=== PATIENT | female | born 1940 | race Caucasian/White ===

== ENCOUNTER 2016-10-24 15:45 | Emergency (ER) | payer MEDICARE, MEDICAID ==
[2016-10-24 15:53] VITALS: BP 166/91
--- NOTE | 2016-10-24 16:45 | ER Document Report ---
ED General - General Chief Complaint: Fall Stated Complaint: RIB PAIN/FALL Time Seen by Provider: 10/24/16 16:38 TRAVEL OUTSIDE OF THE [place] IN LAST 30 DAYS: No - HPI Patient complains to provider of: left rib pain Onset: This morning Notes: Female presents after falling onto her left side. She was helping a friend get up she tripped and landed on her left rib cage. Patient is reproducible pain midclavicular line point tenderness seventh left rib 's breath or cough. Patient is able to laugh, cough without exacerbation of pain. Pain is 6/10 sharp in nature without radiation. Denies nausea vomiting or diaphoresis - Related Data Allergies/Adverse Reactions: No Known Allergies Allergy (Unverified 10/24/16 15:51) Past Medical History - Social History Smoking Status: Current Every Day Smoker Chew tobacco use (# tins/day): No Frequency of alcohol use: None Drug Abuse: None Family History: None - Past Medical History Cardiac Medical History: Reports: Hx Hypertension Endocrine Medical History: Reports: Hx Diabetes Mellitus Type 2 Renal/ Medical History: Denies: Hx Peritoneal Dialysis Review of Systems - Review of Systems Constitutional: No symptoms reported EENT: No symptoms reported Cardiovascular: Chest pain Respiratory: No symptoms reported Gastrointestinal: No symptoms reported Genitourinary: No symptoms reported Female Genitourinary: No symptoms reported Musculoskeletal: No symptoms reported Skin: No symptoms reported Hematologic/Lymphatic: No symptoms reported Neurological/Psychological: No symptoms reported Physical Exam - Vital signs Vitals: Temp Pulse Resp BP Pulse Ox 98.4 F 102 H 18 166/91 H 97 10/24/16 15:52 10/24/16 15:52 10/24/16 15:52 10/24/16 15:52 10/24/16 15:52 Interpretation: Normal - General General appearance: Appears well, Alert - HEENT Head: Normocephalic, Atraumatic Eyes: Normal Pupils: PERRL - Respiratory Respiratory status: No respiratory distress Chest status: Nontender Breath sounds: Normal Chest palpation: Normal - Cardiovascular Rhythm: Regular Heart sounds: Normal auscultation Murmur: No Notes: Reducible left sharp chest - Abdominal Inspection: Normal Distension: No distension Bowel sounds: Normal Tenderness: Nontender Organomegaly: No organomegaly - Back Back: Normal, Nontender - Extremities General upper extremity: Normal inspection, Nontender, Normal color, Normal ROM , Normal temperature General lower extremity: Normal inspection, Nontender, Normal color, Normal ROM , Normal temperature, Normal weight bearing. No: Mejia's sign - Neurological Neuro grossly intact: Yes Cognition: Normal Orientation: AAOx4 Michael Coma Scale Eye Opening: Spontaneous [place] Coma Scale Verbal: Oriented [place] Coma Scale Motor: Obeys Commands Michael Coma Scale Total: 15 Speech: Normal Motor strength normal: LUE, RUE, LLE, RLE Sensory: Normal - Psychological Associated symptoms: Normal affect, Normal mood - Skin Skin Temperature: Warm Skin Moisture: Dry Skin Color: Normal Course - Re-evaluation Re-evalutation: 10/24/16 16:43 Presents after minor left-sided chest trauma. Patient is one micturition of a broken rib. Patient able to cough forcefully and left without pain. Pain is only exacerbated with twisting or palpation. Imaging studies were negative per my read 10/24/16 16:53 - Vital Signs Vital signs: Temp Pulse Resp BP Pulse Ox 98.4 F 102 H 18 166/91 H 97 10/24/16 15:52 10/24/16 15:52 10/24/16 15:52 10/24/16 15:52 10/24/16 15:52 - Diagnostic Test Radiology results interpreted by me: 10/24/16 16:52 X-ray negative for acute process Discharge - Discharge Clinical Impression: Bone bruise Condition: Good Disposition: HOME, SELF-CARE Instructions: Rib Contusion ([facility]) Additional Instructions: [id number] analgesia with Tylenol and ibuprofen. Follow-up with your family doctor next week Return to the Emergency Department without delay if any worse.
--- NOTE | 2016-10-24 16:51 | RADIOLOGY REPORT (SQ) ---
EXAM DESCRIPTION: RIBS LEFT W/PA CHEST COMPLETED DATE/TIME: 10/24/2016 4:38 pm REASON FOR STUDY: fall injury COMPARISON: None. TECHNIQUE: Frontal view of the chest and additional views of the left ribs acquired. NUMBER OF VIEWS: Three view. LIMITATIONS: None. FINDINGS: FRONTAL CXR: No pneumothorax. No pleural effusion. No atelectasis or infiltrates. RIBS: No displaced rib fractures. Incidental note is made of well-healed fracture deformities of the left 6th, 7th, and 8th ribs laterally. No lytic or blastic bony lesions. OTHER: Mediastinal and left hilar surgical changes are demonstrated. IMPRESSION: NO PNEUMOTHORAX. NO DISPLACED RIB FRACTURES. COMMENT: SITE OF TRAUMA/COMPLAINT MARKED/STAMP COMPLETED: NO. TECHNICAL DOCUMENTATION: JOB ID: [id number] [employer]- All Rights Reserved
== END 2016-10-24 16:57 | disposition home or self-care (01) ==
LOC: ER 15:45
DX: S20.212A Contusion of left front wall of thorax, initial encounter (principal); R07.81 Pleurodynia; W19.XXXA Unspecified fall, initial encounter; F17.200 Nicotine dependence, unspecified, uncomplicated
CPT/HCPCS: 99283

== ENCOUNTER 2016-12-14 14:35 | Emergency (ER) | payer MEDICARE, MEDICAID ==
[2016-12-14 14:45] VITALS: BP 156/87
[2016-12-14] MEDS ORDERED: KETOROLAC TROMETHAMINE INJ/PF 30 MG/1 ML SDV IM ONE (15:15)
--- NOTE | 2016-12-14 15:20 | ER Document Report ---
HPI - HPI Pain Level: 5 Notes: Patient is a 76-year-old female with a history of hypertension and diabetes who presents to the ED complaining of left hip pain 1 month without any injury or trauma. Patient states that the pain does not radiate and is primarily to the left lateral hip/buttock. She has tried stretching without any relief. She has not taken any other usxi-ukx-jzmuupx meds for her symptoms. The pain is described as a soreness/ache and hurts primarily when she is ambulating or laying on it for too long. Patient states that she is still able to ambulate without any other difficulties. She has not noticed any swelling, redness, or bruising. She denies any drug allergies or other significant past medical history. Denies any surgical procedures to the left hip. Patient denies any surgeries or procedures to her low back. Denies any IV drug use. Denies any headache, fever, neck pain, chest pain, palpitations, syncope, cough, shortness of breath, wheeze, dyspnea, abdominal pain, nausea/vomiting/diarrhea, urinary retention, dysuria, hematuria, back pain, loss of control of bowel or bladder, numbness/tingling, saddle anesthesia, muscle paralysis/weakness, or rash. - ROS Notes: REVIEW OF SYSTEMS: CONSTITUTIONAL : Denies fever, chills, or sweats. Denies recent illness. EENT: Denies eye, ear, throat, or mouth pain or symptoms. Denies nasal or sinus congestion or discharge. Denies throat, tongue, or mouth swelling or difficulty swallowing. CARDIOVASCULAR: Denies chest pain. Denies palpitations or racing or irregular heart beat. Denies ankle edema. RESPIRATORY: Denies cough, cold, or chest congestion. Denies shortness of breath, difficulty breathing, or wheezing. GASTROINTESTINAL: Denies abdominal pain or distention. Denies nausea, vomiting , or diarrhea. Denies blood in vomitus, stools, or per rectum. Denies black, tarry stools. Denies constipation. GENITOURINARY: Denies difficulty urinating, painful urination, burning, frequency, blood in urine, or discharge. MUSCULOSKELETAL: see hpi SKIN: Denies rash, lesions or sores. NEUROLOGICAL: Denies confusion or altered mental status. Denies passing out or loss of consciousness. Denies dizziness or lightheadedness. Denies headache. Denies weakness or paralysis or loss of use of either side. Denies problems with gait or speech. Denies sensory loss, numbness, or tingling. ALL OTHER SYSTEMS REVIEWED AND NEGATIVE. Dictation was performed using [employer] voice recognition software - DERM Skin Color: Normal Past Medical History - Social History Smoking Status: Unknown if Ever Smoked Family History: None Patient has suicidal ideation: No - Past Medical History Cardiac Medical History: Reports: Hx Hypertension Endocrine Medical History: Reports: Hx Diabetes Mellitus Type 2 Renal/ Medical History: Denies: Hx Peritoneal Dialysis Vertical Provider Document - CONSTITUTIONAL Agree With Documented VS: Yes Notes: PHYSICAL EXAMINATION: GENERAL: Well-appearing, well-nourished and in no acute distress. LUNGS: Breath sounds clear to auscultation bilaterally and equal. No wheezes rales or rhonchi. HEART: Regular rate and rhythm without murmurs, rubs, gallops. ABDOMEN: Soft, nontender, nondistended abdomen. No guarding, no rebound. No masses appreciated. Normal bowel sounds present. No CVA tenderness bilaterally. no pulsatile mass. Musculoskeletal: LE's b/l: FROM to passive/active. Strength 5+/5. FAB neg. + tenderness just posterior to the troch bursa in the soft tissue. No bony tenderness of the hip. No issues through ROM. N/V intact distal. No erythema , ecchymosis, step-offs, of signs of trauma/deformity. Back: FROM, strength 5+/5. No vertebral point tenderness. No muscle spasming. No SI jt tenderness. Extremities: No cyanosis, clubbing, or edema b/l. Peripheral pulses 2+. Capillary refill less than 3 seconds. NEUROLOGICAL: Normal speech, ataxic gait. Normal sensory, motor exams PSYCH: Normal mood, normal affect. SKIN: Warm, Dry, normal turgor, no rashes or lesions noted. - INFECTION CONTROL TRAVEL OUTSIDE OF THE [place] IN LAST 30 DAYS: No - RESPIRATORY O2 Sat by Pulse Oximetry: 99 Course - Re-evaluation Re-evalutation: 12/14/16 15:40 Patient is an afebrile, well-hydrated, 76-year-old female who presents the ED with left hip pain, appears to be chronic in nature and not acute. Vitals are stable. PE otherwise unremarkable for any focal neurological deficits. No imaging warranted today based on H&P. Low suspicion/risk for any other sepsis, meningitis, septic joint, fracture, dislocation, disc herniation causing severe spinal stenosis, deep space infection/abscess. Patient is aware that her condition can change from initial presentation and she needs to monitor symptoms closely and seek medical attention if any acute changes. Toradol 15 mg given IM today. I will send her home with a prescription for naproxen and Voltaren gel. Conservative measures for symptoms. Recheck with your PCM this week. Consider consult with orthopedics/physical therapy. Return to the ED with any worsening/concerning symptoms otherwise as reviewed discharge. Patient is in agreement. C[employer] was consulted to help patient with directions to nearby facilities (PCM/Ortho). - Vital Signs Vital signs: Temp Pulse Resp BP Pulse Ox 97.6 F 103 H 20 156/87 H 99 12/14/16 14:43 12/14/16 14:43 12/14/16 14:43 12/14/16 14:43 12/14/16 14:43 Discharge - Discharge Clinical Impression: Left hip pain Condition: Stable Disposition: HOME, SELF-CARE Instructions: Bursitis ([facility]), Leg Pain Nonspecific ([facility]) Additional Instructions: Rest, Ice, Compression, Elevation Tylenol/ibuprofen as needed Light stretches daily Strength exercises as able Moist heat and massage may help F/u with your PCP in 2-3 days for a recheck Consider consult(s) with Orthopedics/physical therapy for ongoing/worsening symptoms Return to the ED with any worsening symptoms and/or development of fever, headache, chest pain, palpitations, syncope, shortness of breath, trouble breathing, abdominal pain, n/v/d, blood in stool/urine, loss of control of bowel /bladder, urinary retention, muscle weakness/paralysis, saddle anesthesia, numbness/tingling, redness, abscess, discharge, swelling, or other worsening symptoms that are concerning to you. Prescriptions: Diclofenac Sodium [Voltaren] 4 gm TP QID PRN #100 gel..gm. PRN Reason: Naproxen 500 mg PO BID PRN #30 tablet PRN Reason: Forms: Elevated Blood Pressure Referrals: [facility] [Provider Group] - Follow up as needed [facility] [Provider Group] - Follow up as needed [facility] [Provider Group] - Follow up in 1 week
== END 2016-12-14 15:53 | disposition home or self-care (01) ==
LOC: ER 14:35
DX: M25.552 Pain in left hip (principal); I10 Essential (primary) hypertension; E11.9 Type 2 diabetes mellitus without complications
CPT/HCPCS: 99283; 96372; J1885

== ENCOUNTER 2017-01-11 16:55 | Emergency (ER) | payer MEDICARE, MEDICAID ==
[2017-01-11 17:03] VITALS: BP 138/103
--- NOTE | 2017-01-11 18:38 | EKG REPORT ---
SEVERITY:- OTHERWISE NORMAL ECG - SINUS RHYTHM BORDERLINE LEFT AXIS DEVIATION : Confirmed by: Jose Cheek 11-Jan-2017 18:37:02
== END 2017-01-11 18:40 | disposition left against medical advice (07) ==
LOC: ER 16:55
DX: Z53.21 Procedure and treatment not carried out due to patient leaving prior to being seen by health care provider (principal)
CPT/HCPCS: 93005; 93010

== ENCOUNTER 2017-01-21 12:40 | Emergency (ER) | payer MEDICARE, MEDICAID ==
--- NOTE | 2017-01-21 12:52 | ER Document Report ---
ED Extremity Problem, Lower - General Chief Complaint: Leg Pain Stated Complaint: LEFT LEG PAIN Time Seen by Provider: 01/21/17 12:52 Mode of Arrival: Ambulatory Information source: Patient Notes: Patient is a 76-year-old female who presents to the ER today for left knee pain. Patient States that she has osteoarthritis and already has an appointment in January to follow-up with an orthopedic surgeon and knows "I need a knee replacement." Patient states that it has been hurting her for years and that she "cannot take it anymore." She states that she just cannot wait until that appointment In January. She denies any injury, numbness or tingling. She also complains of some left hip pain radiating down into her left lower leg that started 3 days ago as well. Denies injury. TRAVEL OUTSIDE OF THE [place] IN LAST 30 DAYS: No - Related Data Allergies/Adverse Reactions: No Known Allergies Allergy (Verified 01/21/17 13:02) Past Medical History - General Information source: Patient - Social History Smoking Status: Unknown if Ever Smoked Family History: None - Past Medical History Cardiac Medical History: Reports: Hx Hypertension Endocrine Medical History: Reports: Hx Diabetes Mellitus Type 2 Renal/ Medical History: Denies: Hx Peritoneal Dialysis - Immunizations Hx Diphtheria, Pertussis, Tetanus Vaccination: Yes Review of Systems - Review of Systems Constitutional: No symptoms reported EENT: No symptoms reported Cardiovascular: No symptoms reported Respiratory: No symptoms reported Gastrointestinal: No symptoms reported Genitourinary: No symptoms reported Female Genitourinary: No symptoms reported Musculoskeletal: See HPI Skin: No symptoms reported Hematologic/Lymphatic: No symptoms reported Neurological/Psychological: No symptoms reported Physical Exam - Vital signs Vitals: Pulse Resp BP Pulse Ox 105 H 20 145/87 H 97 01/21/17 12:46 01/21/17 12:46 01/21/17 12:46 01/21/17 12:46 - Notes Notes: PHYSICAL EXAMINATION: GENERAL: Elderly, in no acute distress. HEAD: Atraumatic, normocephalic. EYES: Pupils equal round and reactive to light, extraocular movements intact, sclera anicteric, conjunctiva are normal. NECK: Normal range of motion, supple without lymphadenopathy LUNGS: CTAB and equal. No wheezes rales or rhonchi. HEART: Regular rate and rhythm without murmurs EXTREMITIES: Masses noted to the anterior and lateral left knee, both approximately 4 cm x 2 cm in diameter, fleshy feeling, no erythema or discoloration, tender to the lateral left hip and over the left SI joint, normal range of motion but with pain on flexion of the knee and hip, no pitting edema. No cyanosis. NEUROLOGICAL: Cranial nerves grossly intact. Normal sensory/motor exams. PSYCH: Normal mood, normal affect. SKIN: Warm, Dry, normal turgor, see extremities above Course - Re-evaluation Re-evalutation: 01/21/17 16:27 CT of the hip and knee reports that the lateral mass on the left knee appears to be a calcified hematoma, myositis ossificans. The anterior mass to the left knee appears to be calcified as well. I did call [facility] telephone operator receptionist for orthopedics, who states that they know about these masses, already have scheduled a knee replacement for her and an exploratory surgery for these masses. Patient's vitals are normal today. She feels better after some pain medication here in the emergency department. - Vital Signs Vital signs: Temp Pulse Resp BP Pulse Ox 98.3 F 90 20 105/84 100 01/21/17 15:05 01/21/17 15:05 01/21/17 15:05 01/21/17 15:05 01/21/17 15:05 Discharge - Discharge Clinical Impression: Myositis ossificans Osteoarthritis Qualifiers: Osteoarthritis location: knee Osteoarthritis type: unspecified Laterality: left Qualified Code(s): M17.12 - Unilateral primary osteoarthritis, left knee Condition: Stable Disposition: HOME, SELF-CARE Additional Instructions: Return immediately for any new or worsening symptoms. Follow up with primary care provider, call tomorrow to make followup appointment. Prescriptions: Meloxicam [Mobic] 15 mg PO DAILY #30 tablet Referrals: MAXI DIAZ MD [ACTIVE STAFF] - Follow up as needed
[2017-01-21] MEDS ORDERED: OXYCODONE HCL IR 5 MG TABLET PO ONE (13:03)
--- NOTE | 2017-01-21 14:04 | RADIOLOGY REPORT (SQ) ---
EXAM DESCRIPTION: CT LT LOWER EXTREMITY WITHOUT COMPLETED DATE/TIME: 01/21/2017 1:21 pm REASON FOR STUDY: masses, pain COMPARISON: None. TECHNIQUE: Axial imaging performed through the left hip with reformatted coronal and sagittal imagin g windowed for bone and soft tissues. Images saved to PACS. 3D IMAGING: Were 3D images as MIP, SSD, or volume rendering performed at the work station? Yes. All CT scanners at this facility use dose modulation, iterative reconstruction, and/or weight based d osing when appropriate to reduce radiation dose to as low as reasonably achievable (ALARA). [facility]: Dose Right [facility]: CareDose [facility]: Dose Right [facility]: Teradose 4D [facility]: Smart Technologies LIMITATIONS: None. RADIATION DOSE: Up-to-date CT equipment and radiation dose reduction techniques were employed. CTDIv ol: 3.6 mGy. DLP: 117 mGy-cm. mGy. FINDINGS: SOFT TISSUES: No obvious swelling or foreign body. BONES: No acute fracture. No dislocation. MINERALIZATION: Normal. OTHER: No other significant finding. IMPRESSION: No acute findings. TECHNICAL DOCUMENTATION: JOB ID: [id number] Quality ID # [id number]: Final reports with documentation of one or more dose reduction techniques (e.g., Au tomated exposure control, adjustment of the mA and/or kV according to patient size, use of iterative reconstruction technique) 2010 [employer]- All Rights Reserved
--- NOTE | 2017-01-21 14:11 | RADIOLOGY REPORT (SQ) ---
EXAM DESCRIPTION: CT LT LOWER EXTREMITY WITHOUT COMPLETED DATE/TIME: 01/21/2017 1:34 pm REASON FOR STUDY: left KNEE masses, pain COMPARISON: None. TECHNIQUE: Axial imaging performed through the left knee with reformatted coronal and sagittal imagi ng windowed for bone and soft tissues. Images saved to PACS. 3D IMAGING: Were 3D images as MIP, SSD, or volume rendering performed at the work station? Yes. All CT scanners at this facility use dose modulation, iterative reconstruction, and/or weight based d osing when appropriate to reduce radiation dose to as low as reasonably achievable (ALARA). [facility]: Dose Right [facility]: CareDose [facility]: Dose Right [facility]: Teradose 4D [facility]: [employer] LIMITATIONS: None. RADIATION DOSE: Up-to-date CT equipment and radiation dose reduction techniques were employed. CTDIv ol: 4.6 mGy. DLP: 120 mGy-cm. mGy. FINDINGS: SOFT TISSUES: Along the lateral aspect distal femur, approximately 6 x 2 cm AP by transver se diameter well-circumscribed subcutaneous lesion with rim calcifications and dependent calcified ma trix. Noncalcified portion measures about 58 HU. Smaller but similar appearing partially calcified lesions prepatellar soft tissues and suprapatellar fat pad. Appearance is most consistent with myosi tis ossificans, however more definitive diagnosis would require tissue sampling. BONES: Old patellar fracture status post cerclage wire fixation. Osteoarthritis, more advanced wolfe lofemoral compartment. No fracture. MINERALIZATION: Osteopenia. OTHER: No other significant finding. IMPRESSION: Myositis ossificans. Osteoarthritis. TECHNICAL DOCUMENTATION: JOB ID: [id number] Quality ID # [id number]: Final reports with documentation of one or more dose reduction techniques (e.g., Au tomated exposure control, adjustment of the mA and/or kV according to patient size, use of iterative reconstruction technique) 2010 [employer]- All Rights Reserved
[2017-01-21 15:07] VITALS: BP 105/84
== END 2017-01-21 15:07 | disposition home or self-care (01) ==
LOC: ER 12:40
DX: M61.9 Calcification and ossification of muscle, unspecified (principal); M17.12 Unilateral primary osteoarthritis, left knee; M79.605 Pain in left leg; M25.562 Pain in left knee; I10 Essential (primary) hypertension; E11.9 Type 2 diabetes mellitus without complications
CPT/HCPCS: 99283; 73700; A9270

== ENCOUNTER → 2017-01-22 | Outpatient (CLI) | payer MEDICARE, MEDICAID ==
--- NOTE | 2017-01-22 14:10 | RADIOLOGY REPORT (SQ) ---
EXAM DESCRIPTION: CHEST PA/LATERAL COMPLETED DATE/TIME: 01/22/2017 2:00 pm REASON FOR STUDY: PRE OP COMPARISON: 10/24/2016. EXAM PARAMETERS: NUMBER OF VIEWS: two views TECHNIQUE: Digital Frontal and Lateral radiographic views of the chest acquired. RADIATION DOSE: NA LIMITATIONS: none FINDINGS: LUNGS AND PLEURA: No opacities, masses or pneumothorax. No pleural effusion. MEDIASTINUM AND HILAR STRUCTURES: No masses or contour abnormalities. HEART AND VASCULAR STRUCTURES: Heart normal size. No evidence for failure. BONES: No acute findings. HARDWARE: None in the chest. OTHER: No other significant finding. IMPRESSION: NO SIGNIFICANT RADIOGRAPHIC FINDING IN THE CHEST. TECHNICAL DOCUMENTATION: JOB ID: [id number] [employer]- All Rights Reserved
[2017-01-22 14:42] LABS: ABSOLUTE EOSINOPHILS # (AUTO) 0.1 10^3/uL (0.0-0.6); ABSOLUTE LYMPHOCYTES (AUTO) 2.2 10^3/uL (0.5-4.7); ABSOLUTE MONOCYTES (AUTO) 0.4 10^3/uL (0.1-1.4); ABSOLUTE NEUT (AUTO) 4.1 10^3/uL (1.7-8.2); BASOPHILS % (AUTO) 0.6 % (0-2); EOSINOPHILS % (AUTO) 2.1 % (0-6); HEMATOCRIT 37.5 % (36.0-47.0); HEMOGLOBIN 13.2 g/dL (12.0-15.5); HGB HCT DIFFERENCE 2.1; LYMPHOCYTES % (AUTO) 31.5 % (13-45); MEAN CORPUSCULAR HEMOGLOBIN 33.4 pg (27.0-33.4); MEAN CORPUSCULAR HGB CONC 35.3 g/dL (32.0-36.0); MEAN CORPUSCULAR VOLUME 95 fl (80-97); MONOCYTES % (AUTO) 6.2 % (3-13); RED BLOOD COUNT 3.96 10^6/uL (3.72-5.28); SEGMENTED NEUTROPHILS % (AUTO) 59.6 % (42-78); WHITE BLOOD COUNT 6.9 10^3/uL (4.0-10.5)
[2017-01-22 14:55] LABS: ANION GAP 14 (5-19); BLOOD UREA NITROGEN 34 mg/dL (7-20); CALCIUM 9.1 mg/dL (8.4-10.2); CARBON DIOXIDE 22 mmol/L (22-30); CHLORIDE 105 mmol/L (98-107); CREATININE RESULT 1.41 mg/dL (0.52-1.25); GLUCOSE 184 mg/dL (75-110); POTASSIUM 4.8 mmol/L (3.6-5.0); SODIUM 140.9 mmol/L (137-145)
--- NOTE | 2017-01-23 13:45 | EKG REPORT ---
SEVERITY:- BORDERLINE ECG - SINUS RHYTHM LOW VOLTAGE IN FRONTAL LEADS BORDERLINE INFERIOR Q WAVES : Confirmed by: Jose Cheek 23-Jan-2017 13:43:54
== END ==
LOC: OD 13:12
PROVIDERS: ATTEND Orthopaedic Surgery
DX: Z01.818 Encounter for other preprocedural examination (principal); M17.12 Unilateral primary osteoarthritis, left knee
CPT/HCPCS: 36415; 71020; 80048; 83036; 85025; 93005; 93010

== ENCOUNTER 2017-02-15 05:34 | Inpatient (IN) | payer MEDICARE, MEDICAID ==
[~2017-02-15 05:34] MED LIST: BUPIVACAINE INJ/PF LIPOSOME/PF 266 MG/20 ML SDV INJ PRN; IBUPROFEN 800 MG in NORMAL SALINE 250 ML IV PRN; LANSOPRAZOLE 15 MG TAB.RAP.DR PO PRN; NORMAL SALINE 1000 ML 1,000 ML IV PRN; ONDANSETRON HCL INJ/PF 4 MG/2 ML SDV IV PRN; OXYCODONE HCL SR 10 MG TABLET PO PRN; TRANEXAMIC ACID INJ/PF 1,000 MG/10 ML SDV IV PRN; VANCOMYCIN HCL 1,000 MG in DEXTROSE 5%-WATER 250 ML IV PRN
[2017-02-15] MEDS ORDERED: THROMBIN (BOVINE) 5000 UNIT EPITAXIS KIT ONE (06:11)
[2017-02-15] MEDS ORDERED: THROMBIN (BOVINE) TOPICAL 20000 UNIT VIAL ONE (06:11)
[2017-02-15] MEDS ORDERED: CEFAZOLIN INJ 1 GM VIAL ONE (06:35)
[2017-02-15] MEDS ORDERED: BUPIVACAINE INJ/PF LIPOSOME/PF 266 MG/20 ML SDV ONE (06:51)
[2017-02-15] MEDS ORDERED: MIDAZOLAM 2 MG/2 ML INJ ONE (07:07)
[2017-02-15] MEDS ORDERED: FENTANYL CITRATE INJ/PF 100 MCG/2 ML AMPUL ONE (07:07)
[2017-02-15] MEDS ORDERED: PROPOFOL INJ 200 MG/20 ML VIAL IV ONE (07:08)
[2017-02-15] MEDS ORDERED: DEXAMETHASONE SOD PHOSPHATE INJ 4 MG/1 ML VIAL ONE (07:08)
[2017-02-15] MEDS ORDERED: ONDANSETRON HCL INJ/PF 4 MG/2 ML SDV ONE (07:08)
[2017-02-15] MEDS ORDERED: TRANEXAMIC ACID INJ/PF 1,000 MG/10 ML SDV IV ONE (07:08)
[2017-02-15] MEDS ORDERED: MORPHINE SULFATE 10 MG/ML INJ ONE (07:09)
[2017-02-15] MEDS ORDERED: MEPERIDINE HCL/PF INJ 25 MG/1 ML DISP.SYRIN IV PRN (08:08)
[2017-02-15] MEDS ORDERED: PROMETHAZINE HCL INJ 25 MG/1 ML VIAL IV PRN ×2 (08:08)
[2017-02-15] MEDS ORDERED: MORPHINE SULFATE 10 MG/ML INJ IV PRN ×4 (08:08→09:09)
[2017-02-15] MEDS ORDERED: FENTANYL CITRATE INJ/PF 100 MCG/2 ML AMPUL IV PRN ×3 (08:08)
[2017-02-15] MEDS ORDERED: DIPHENHYDRAMINE HCL 50 MG/ML VIAL IV PRN ×2 (08:08→09:09)
[2017-02-15 08:26] LABS: APPEARANCE,URINE SLIGHTLY-CLOUDY; BILIRUBIN,URINE NEGATIVE (NEGATIVE); GLUCOSE, URINE >=500 mg/dL (NEGATIVE); KETONES,URINE NEGATIVE (NEGATIVE); LEUKOCYTE ESTERASE,URINE SMALL (NEGATIVE); NITRITE,URINE POSITIVE (NEGATIVE); PROTEIN,URINE NEGATIVE (NEGATIVE); URINE SPECIFIC GRAVITY 1.017; UROBILINOGEN,URINE NEGATIVE mg/dL (<2.0)
--- NOTE | 2017-02-15 08:48 | Operative Report ---
Operative Report DATE OF SURGERY: 02/15/17 PREOPERATIVE DIAGNOSIS: Left knee arthritis OPERATION: Right knee arthroplasty SURGEON: MAXI DIAZ 1ST CLASSIFIER OPERATOR: VERITO ABRAHAM ANESTHESIA: Spinal TISSUE REMOVED OR ALTERED: Bone and debrided soft tissue to pathology. Cultures to microbiology ESTIMATED BLOOD LOSS: 25 PROCEDURE: Implants used: Femur: [place] triathlon #4 PS femur Tibia: 3 tibia Tibial liner: 11 mm PS insert Patella: 29 mm oval patella Procedure with the patient supine on the operating table the left the limb is prepped and draped in a sterile fashion. The limb was elevated for exsanguination and the tourniquet inflated to 280 torr. A standard midline median parapatellar approach the knee is taken. It is noted that this crosses the previous smiling mouth incision was used for open reduction internal fixation of a patella fracture. This situation have been discussed with the patient and her family prior to the surgery and the potential for skin necrosis. Upon transecting the subcutaneous tissue a significant amount of milky type fluid is contained within a prepatellar bursa. This is cultured. Soft tissues which contain calcified material are debrided using a rongeur. The knee is then exposed. Access is gained to the femoral canal through the intercondylar notch. Intramedullary alignment instrumentation used to resect 10 mm of distal femur in 5 of valgus. Sizing guide indicated a size 4 femur. Appropriate cutting jig is then used to fashion anterior posterior and chamfer cuts. A trial reduction femurs performed and this is judged to be adequate. Attention was next turned to the tibia. Using an extra medullary alignment system 9 millimeters was resected off the lateral tibial plateau. This is sized to a size 3 tibia. A trial reduction was now performed with a for femur and a 3 tibia using a 11 millimeters spacer. It is full extension and central patellofemoral tracking. The articular surface the patella was next resected using an oscillating saw. All trial implants were removed. Polymethylmethacrylate is mixed and used to cement the above implants in place. On adequate curing the cement excess cement was removed the tourniquet was deflated hemostasis obtained the wound is then closed in layers using interrupted Vicryl followed by alberto. A sterile compressive dressing was applied and the patient returned to recovery room in satisfactory condition.
[2017-02-15] MEDS ORDERED: MORPHINE SULFATE 10 MG/ML INJ IM PRN (09:09)
[2017-02-15] MEDS ORDERED: ONDANSETRON 4 MG TAB.RAPDIS PO PRN (09:09)
[2017-02-15] MEDS ORDERED: ACETAMINOPHEN 325 MG TABLET PO PRN (09:09)
[2017-02-15] MEDS ORDERED: ZOLPIDEM TARTRATE 5 MG TABLET PO PRN (09:09)
[2017-02-15] MEDS ORDERED: ONDANSETRON HCL INJ/PF 4 MG/2 ML SDV IV PRN (09:09)
[2017-02-15] MEDS ORDERED: MAG HYDROX/AL HYDROX/SIMETH SUSP 30 ML UDCUP PO PRN (09:09)
[2017-02-15] MEDS ORDERED: GLUCAGON,HUMAN RECOMB 1 MG INJ IM PRN (09:51)
[2017-02-15] MEDS ORDERED: DEXTROSE 50%-WATER SYRINGE 25 GM/50 ML DOSE IV PRN (09:51)
[2017-02-15] MEDS ORDERED: DEXTROSE 50%-WATER SYRINGE 12.5 GM/25 ML DOSE IV PRN (09:51)
[2017-02-15] MEDS ORDERED: DEXTROSE 40% GEL 15 GM TUBE PO PRN (09:51)
[2017-02-15] MEDS ORDERED: DEXTROSE 40% GEL 15 GM TUBE X 2 PO PRN (09:51)
--- NOTE | 2017-02-15 10:19 | RADIOLOGY REPORT (SQ) ---
EXAM DESCRIPTION: KNEE LEFT 2 VIEWS COMPLETED DATE/TIME: 02/15/2017 9:53 am REASON FOR STUDY: Post OP -Long Cassette in PACU M17.12 UNILATERAL PRIMARY OSTEOARTHRITIS, LEFT KNE E COMPARISON: Left knee CT exam 01/21/2017 NUMBER OF VIEWS: AP and lateral left knee films portable technique post knee replacement TECHNIQUE: Digital radiographic images of the left knee post-procedure. LIMITATIONS: None. FINDINGS: BONES: No worrisome or unexpected findings post-procedure. Old patellar fracture retaine d radiopaque sutures along the patella. DEVICE: Left total knee replacement with patellar resurfacing SOFT TISSUES: Peripherally calcified loculations of this prepatellar bursal are seen over the left l eg soft tissues ventral to the lateral femoral condyle IMPRESSION: SATISFACTORY POSTOPERATIVE left KNEE. TECHNICAL DOCUMENTATION: JOB ID: [id number] [employer]- All Rights Reserved
[2017-02-15] MEDS: TRANEXAMIC ACID INJ/PF 1,000 MG/10 ML SDV IV ONE ×2 (10:45→10:54)
[2017-02-15] MEDS: OXYCODONE HCL SR 10 MG TABLET PO SCH ×3 (10:54→21:59)
[2017-02-15] MEDS: ENALAPRIL MALEATE 10 MG TABLET PO SCH ×2 (10:54→12:02)
[2017-02-15] MEDS: NICOTINE 21 MG/24 HR PATCH.TD24 TD SCH ×2 (10:54→12:02)
[2017-02-15] MEDS ORDERED: ACETAMINOPHEN 100 ML IV ONE (15:00)
[2017-02-15] MEDS: GABAPENTIN 300 MG CAPSULE PO SCH ×2 (15:02→21:59)
[2017-02-15] MEDS: OXYCODONE HCL IR 5 MG TABLET PO PRN (16:53)
[2017-02-15] MEDS: IBUPROFEN 800 MG in NORMAL SALINE 250 ML IV SCH (17:26)
[2017-02-15] MEDS: INSULIN LISPRO 100 UNIT/ML 3 ML VIAL SUBCUT PRN ×2 (17:26→22:12)
[2017-02-15] MEDS ORDERED: VANCOMYCIN HCL 1,000 MG in DEXTROSE 5%-WATER 250 ML IV ONE (21:00)
[2017-02-15] MEDS: RIVAROXABAN 10 MG TABLET PO SCH (21:59)
[2017-02-16] MEDS: IBUPROFEN 800 MG in NORMAL SALINE 250 ML IV SCH ×3 (01:40→18:25)
[2017-02-16] MEDS: OXYCODONE HCL IR 5 MG TABLET PO PRN (01:45)
[2017-02-16] MEDS ORDERED: LANSOPRAZOLE 30 MG TAB.RAP.DR PO SCH (06:00)
[2017-02-16] MEDS: GABAPENTIN 300 MG CAPSULE PO SCH ×3 (06:10→22:18)
[2017-02-16 06:15] LABS: HEMATOCRIT 31.1 % (36.0-47.0); HEMOGLOBIN 10.7 g/dL (12.0-15.5); MEAN CORPUSCULAR HEMOGLOBIN 32.9 pg (27.0-33.4); MEAN CORPUSCULAR HGB CONC 34.4 g/dL (32.0-36.0); MEAN CORPUSCULAR VOLUME 95 fl (80-97); RED BLOOD COUNT 3.26 10^6/uL (3.72-5.28); RED CELL DISTRIBUTION WIDTH 13.8 % (11.5-14.0); WHITE BLOOD COUNT 10.1 10^3/uL (4.0-10.5)
--- NOTE | 2017-02-16 06:44 | PDOC PROGRESS REPORT ---
Subjective Progress Note for:: 02/16/17 Subjective:: 76-year-old white female one day status post total left knee arthroplasty. Patient is sitting comfortably and has no complaints of pain this morning. Patient is curious as to what was the etiology of her pain. It was explained that patient had severe arthritis of the left knee as well as a cystic protrusion on the lateral aspect. Patient voiced understanding of these findings. Physical Exam Vital Signs: Temp Pulse Resp BP Pulse Ox 36.6 C 71 16 138/71 H 98 02/16/17 00:00 02/16/17 00:00 02/16/17 00:00 02/16/17 00:00 02/15/17 20:00 Intake & Output 02/14/17 02/15/17 02/16/17 06:59 06:59 06:59 Intake Total 3380 Output Total 2320 Balance 1060 General appearance: PRESENT: no acute distress, well-developed, well-nourished Head exam: PRESENT: atraumatic, normocephalic Respiratory exam: PRESENT: unlabored Pulses: PRESENT: normal dorsalis pedis pul, +2 pedal pulses bilateral Vascular exam: PRESENT: normal capillary refill Additional comments: Patient is sitting upright in hospital bed with left lower extremity in full extension. Her OpSite compression dressing is in place and is clean dry and intact. She has minimal pedal edema bilateral feet and has brisk capillary refill to toes on bilateral feet. Her sensory and motor functions are intact and her distal neurovascular exam is intact. Musculoskeletal exam: PRESENT: ambulatory Additional comments: Patient makes great progress with physical therapy ambulating 120 feet independently. She will continue to work with PT to improve distance of ambulation and strength range of motion of the left lower extremity. Neurological exam: PRESENT: alert, awake, oriented to person, oriented to place , oriented to time, oriented to situation, CN II-XII grossly intact. ABSENT: motor sensory deficit Additional comments: Of note patient is hard of hearing. Psychiatric exam: PRESENT: appropriate affect, normal mood. ABSENT: homicidal ideation, suicidal ideation Skin exam: PRESENT: dry, intact, warm. ABSENT: cyanosis, rash Results Laboratory Results: 02/16/17 05:41 02/15/17 02/16/17 07:15 05:41 WBC 10.1 RBC 3.26 L Hgb 10.7 L Hct 31.1 L MCV 95 MCH 32.9 MCHC 34.4 RDW 13.8 Plt Count 244 Urine Color YELLOW Urine Appearance SLIGHTLY-CLOUDY Urine pH 6.0 Ur Specific [place] 1.017 Urine Protein NEGATIVE Urine Glucose (UA) >=500 H Urine Ketones NEGATIVE Urine Blood NEGATIVE Urine Nitrite POSITIVE H Ur Leukocyte Esterase SMALL H Urine WBC (Auto) 133 Urine RBC (Auto) 1 Impressions: Knee X-Ray 02/15/17 09:10 IMPRESSION: SATISFACTORY POSTOPERATIVE left KNEE. Assessment & Plan - Diagnosis (1) Arthritis of left knee Is this a current diagnosis for this admission?: Yes - Plan Summary Plan Summary: 76-year-old white female one day status post total left knee arthroplasty. Patient remains comfortable and her pain is well controlled. She made great progress with physical therapy ambulating 120 feet independently. She will continue to work with PT to improve strength and range of motion of left lower extremity. Her blood glucose levels have been between 120 and 240 and this could be better controlled. Therefore a consult was ordered by her primary care doctor, Dr. Baeza to evaluate for better control of her diabetes. We will plan for discharge later this week.
[2017-02-16 06:47] LABS: ANION GAP 10 (5-19); BLOOD UREA NITROGEN 24 mg/dL (7-20); CALCIUM 8.9 mg/dL (8.4-10.2); CARBON DIOXIDE 24 mmol/L (22-30); CHLORIDE 106 mmol/L (98-107); CREATININE RESULT 1.26 mg/dL (0.52-1.25); GLUCOSE 147 mg/dL (75-110); POTASSIUM 5.4 mmol/L (3.6-5.0); SODIUM 139.7 mmol/L (137-145)
[2017-02-16] MEDS ORDERED: GLIPIZIDE XL 2.5 MG TAB.ER.24 PO SCH (08:00)
[2017-02-16] MEDS: OXYCODONE HCL SR 10 MG TABLET PO SCH ×2 (10:19→22:18)
[2017-02-16] MEDS: ENALAPRIL MALEATE 10 MG TABLET PO SCH (10:21)
[2017-02-16] MEDS: NICOTINE 21 MG/24 HR PATCH.TD24 TD SCH (10:22)
[2017-02-16] MEDS ORDERED: ZOLPIDEM TARTRATE 5 MG TABLET PO PRN (15:30)
[2017-02-16] MEDS ORDERED: ONDANSETRON HCL INJ/PF 4 MG/2 ML SDV IV PRN (15:30)
[2017-02-16] MEDS ORDERED: MAG HYDROX/AL HYDROX/SIMETH SUSP 30 ML UDCUP PO PRN (15:30)
[2017-02-16] MEDS ORDERED: ONDANSETRON 4 MG TAB.RAPDIS PO PRN (15:30)
[2017-02-16] MEDS ORDERED: NORMAL SALINE 1000 ML 1,000 ML IV PRN (18:48)
--- NOTE | 2017-02-16 18:59 | PDOC CONSULTATION ---
Consultation Consult Date: 02/16/17 Attending physician:: MAXI DIAZ Consult reason:: Medical management of diabetes mellitus History of Present Illness Admission Date/PCP: 02/15/17 05:34 PRICILA CARMEN MD History of Present Illness: ALEXA NUGENT is a 76 year old female, she is well-known to me she has a history of chronic kidney disease stage III, and noncompliance with medical regimen, type 2 diabetes mellitus, remote history of lung cancer, nicotine dependence. She was admitted electively for right knee arthroplasty. Consultation was obtained from medicine for medical management of diabetes mellitus. Based on the revised cardiac risk index score she has low cardiovascular risk in the perioperative period. Past Medical History Cardiac Medical History: Reports: Hypertension Endocrine Medical History: Reports: Diabetes Mellitus Type 2 Renal/ Medical History: Reports: Chronic Kidney Disease Malignancy Medical History: Reports: Lung Cancer - pt states had half of lung removed Musculoskeltal Medical History: Reports: Arthritis - knees Past Surgical History Past Surgical History: Reports: Tubal Ligation Social History Smoking Status: Current Every Day Smoker Cigarettes Packs Per Day: 0.5 Hx Recreational Drug Use: No Hx Prescription Drug Abuse: No - Advance Directive Resuscitation Status: Full Code Family History Family History: None Parental Family History Reviewed: Yes Children Family History Reviewed: Yes Sibling(s) Family History Reviewed.: Yes Medication/Allergy Home Medications: Gabapentin [Neurontin 300 mg Capsule] 300 mg PO Q8 02/15/17 Meloxicam [Mobic] 15 mg PO DAILY 02/15/17 Tramadol HCl [Ultram 50 mg Tablet] 50 mg PO Q6HP PRN 02/15/17 Allergies/Adverse Reactions: No Known Allergies Allergy (Verified 01/21/17 13:02) Review of Systems Constitutional: ABSENT: chills, fever(s), headache(s), weight gain, weight loss Eyes: ABSENT: visual disturbances Ears: ABSENT: hearing changes Cardiovascular: ABSENT: chest pain, dyspnea on exertion, edema, orthropnea, palpitations Respiratory: ABSENT: cough, hemoptysis Gastrointestinal: ABSENT: abdominal pain, constipation, diarrhea, hematemesis, hematochezia, nausea, vomiting Genitourinary: ABSENT: dysuria, hematuria Musculoskeletal: PRESENT: joint swelling Integumentary: ABSENT: rash, wounds Neurological: ABSENT: abnormal gait, abnormal speech, confusion, dizziness, focal weakness, syncope Psychiatric: ABSENT: anxiety, depression, homidical ideation, suicidal ideation Endocrine: ABSENT: cold intolerance, heat intolerance, menstrual abnormalities, polydipsia, polyuria Hematologic/Lymphatic: ABSENT: easy bleeding, easy bruising, lymphadenopathy Physical Exam Vital Signs: Temp Pulse Resp BP Pulse Ox 98.0 F 88 18 170/65 H 92 02/16/17 16:37 02/16/17 16:37 02/16/17 12:41 02/16/17 16:37 02/16/17 16:37 Intake & Output 02/15/17 02/16/17 02/17/17 06:59 06:59 06:59 Intake Total 3880 1420 Output Total 3620 1200 Balance 260 220 General appearance: PRESENT: no acute distress, well-developed, well-nourished Head exam: PRESENT: atraumatic, normocephalic Eye exam: PRESENT: conjunctiva pink, EOMI, PERRLA Ear exam: PRESENT: normal external ear exam Mouth exam: PRESENT: moist, tongue midline Neck exam: PRESENT: full ROM Cardiovascular exam: PRESENT: RRR, +S1, +S2 Pulses: PRESENT: normal dorsalis pedis pul, +2 pedal pulses bilateral Vascular exam: PRESENT: normal capillary refill GI/Abdominal exam: PRESENT: normal bowel sounds, soft Rectal exam: PRESENT: deferred Neurological exam: PRESENT: alert, awake, oriented to person, oriented to place , oriented to time, oriented to situation, CN II-XII grossly intact Psychiatric exam: PRESENT: appropriate affect, normal mood Skin exam: PRESENT: dry, intact, warm Results Laboratory Results: 02/16/17 05:41 02/16/17 05:41 02/16/17 02/16/17 05:41 05:41 WBC 10.1 RBC 3.26 L Hgb 10.7 L Hct 31.1 L MCV 95 MCH 32.9 MCHC 34.4 RDW 13.8 Plt Count 244 Sodium 139.7 Potassium 5.4 H Chloride 106 Carbon Dioxide 24 Anion Gap 10 BUN 24 H Creatinine 1.26 H Est GFR ( Amer) 50 L Est GFR (Non-Af Amer) 41 L Glucose 147 H Calcium 8.9 Impressions: Knee X-Ray 02/15/17 09:10 IMPRESSION: SATISFACTORY POSTOPERATIVE left KNEE. Assessment & Plan - Diagnosis (1) Type 2 diabetes mellitus Qualifiers: Diabetes mellitus complication status: with kidney complications Diabetes mellitus complication detail: with chronic kidney disease Diabetes mellitus service station helper insulin use: without custodial use Chronic kidney disease stage: stage 3 (moderate) Qualified Code(s): E11.22 - Type 2 diabetes mellitus with diabetic chronic kidney disease; N18.3 - Chronic kidney disease, stage 3 ( moderate); N18.3 - Chronic kidney disease, stage 3 (moderate) Is this a current diagnosis for this admission?: Yes Plan: I will avoid glipizide in this patient especially with history of chronic kidney disease and age, there is risk of hypoglycemia. Tradjenta is nonformulary in this hospital, metformin is contraindicated in this patient because of the kidney disease, I will prescribe Januvia and also sliding scale with rapidly acting insulin coverage. I will also avoid NSAIDs in this patient because of chronic kidney disease stage 3 I noted that ibuprofen is part of the postoperative care after knee replacement therapy I will recommend isotonic hydration and follow kidney function very closely will avoid any form of dehydration. (2) Chronic kidney disease, stage 3 Is this a current diagnosis for this admission?: Yes
[2017-02-16] MEDS ORDERED: SITAGLIPTIN PHOSPHATE 50 MG TABLET PO ONE (19:30)
[2017-02-16] MEDS: RIVAROXABAN 10 MG TABLET PO SCH (22:18)
[2017-02-17] MEDS: IBUPROFEN 800 MG in NORMAL SALINE 250 ML IV SCH ×2 (02:23→10:33)
[2017-02-17] MEDS: GABAPENTIN 300 MG CAPSULE PO SCH (05:37)
[2017-02-17] MEDS ORDERED: LANSOPRAZOLE 30 MG TAB.RAP.DR PO SCH (06:00)
[2017-02-17 06:18] LABS: HEMATOCRIT 32.5 % (36.0-47.0); HEMOGLOBIN 11.1 g/dL (12.0-15.5); HGB HCT DIFFERENCE 0.8; MEAN CORPUSCULAR HEMOGLOBIN 32.9 pg (27.0-33.4); MEAN CORPUSCULAR HGB CONC 34.2 g/dL (32.0-36.0); MEAN CORPUSCULAR VOLUME 96 fl (80-97); RED BLOOD COUNT 3.38 10^6/uL (3.72-5.28); RED CELL DISTRIBUTION WIDTH 13.7 % (11.5-14.0); WHITE BLOOD COUNT 12.8 10^3/uL (4.0-10.5)
--- NOTE | 2017-02-17 06:50 | PDOC DISCHARGE SUMMARY ---
General - Admit/Disc Date/PCP Admission Date/Primary Care Provider: 02/15/17 05:34 PRICILA CARMEN MD Discharge Date: 02/17/17 - Discharge Diagnosis (1) Arthritis of left knee Is this a current diagnosis for this admission?: Yes (2) Type 2 diabetes mellitus Is this a current diagnosis for this admission?: Yes - Additional Information Resuscitation Status: Full Code Discharge Diet: As Tolerated, Regular Discharge Activity: Balance Activity w/Rest, No Driving, No tub bath Home Medications: Gabapentin [Neurontin 300 mg Capsule] 300 mg PO Q8 02/15/17 Meloxicam [Mobic] 15 mg PO DAILY 02/15/17 Tramadol HCl [Ultram 50 mg Tablet] 50 mg PO Q6HP PRN 02/15/17 Oxycodone HCl [Oxy-Ir 5 mg Tablet] 5 mg PO Q6HP PRN tablet 02/17/17 Rivaroxaban [Xarelto 10 mg Tablet] 10 mg PO QHS tablet 02/17/17 History of Present Illness History of Present Illness: ALEXA NUGENT is a 76 year old female with progressive left knee pain and functional disability secondary osteoarthritis. Patient is admitted for elective left knee arthroplasty. Hospital Course Hospital Course: Patient is admitted through the operating room where she undergoes uncomplicated left knee arthroplasty. She is returned to the floor in satisfactory condition. She makes excellent progress with physical therapy ambulating 150 feet the first day and 600 feet the second day. Blood glucoses are somewhat elevated and Dr. Carmen is consulted for diabetes management. There is also some issues with urinary retention with a bladder scan indicating 600 cc of urine and a subsequent VICTORINO cath was performed. The patient subsequently for discharge home with home health nursing, home health physical therapy, wheeled walker, bedside commode. Follow-up will be with Dr. Clark in the [facility] for surgery in 2 weeks for staple removal. Physical Exam Vital Signs: Temp Pulse Resp BP Pulse Ox 36.8 C 93 16 119/79 96 02/16/17 23:32 02/16/17 23:32 02/16/17 23:32 02/16/17 23:32 02/16/17 23:32 Intake & Output 02/15/17 02/16/17 02/17/17 06:59 06:59 06:59 Intake Total 3880 3900 Output Total 3620 2000 Balance 260 1900 General appearance: PRESENT: no acute distress Head exam: PRESENT: normocephalic Respiratory exam: PRESENT: unlabored Cardiovascular exam: PRESENT: RRR Pulses: PRESENT: +1 pedal pulses bilateral Vascular exam: PRESENT: normal capillary refill GI/Abdominal exam: PRESENT: soft Rectal exam: PRESENT: deferred Extremities exam: PRESENT: other - Left lower extremity dressing is changed on postop day 2. The wound is well approximated without drainage or erythema. There is some mild induration and mild tenderness to palpation. There is minimal pedal edema. Distal neurovascular examination is intact. Neurological exam: PRESENT: alert, awake, oriented to person, oriented to place , oriented to time, oriented to situation. ABSENT: motor sensory deficit Psychiatric exam: PRESENT: appropriate affect, normal mood. ABSENT: homicidal ideation, suicidal ideation Skin exam: PRESENT: dry, intact, warm. ABSENT: cyanosis, rash Results Laboratory Results: 02/17/17 04:58 02/16/17 05:41 02/16/17 02/17/17 05:41 04:58 WBC 12.8 H RBC 3.38 L Hgb 11.1 L Hct 32.5 L MCV 96 MCH 32.9 MCHC 34.2 RDW 13.7 Plt Count 249 Sodium 139.7 Potassium 5.4 H Chloride 106 Carbon Dioxide 24 Anion Gap 10 BUN 24 H Creatinine 1.26 H Est GFR ( Amer) 50 L Est GFR (Non-Af Amer) 41 L Glucose 147 H Calcium 8.9 Impressions: Knee X-Ray 02/15/17 09:10 IMPRESSION: SATISFACTORY POSTOPERATIVE left KNEE. Status: Imported from PACS Plan Discharge Plan: Patient to be discharged home with home health nursing, home health physical therapy, wheeled walker, bedside commode. Follow-up with Dr. Clark and [facility] for surgery in 2 weeks for staple removal.
[2017-02-17] MEDS ORDERED: SITAGLIPTIN PHOSPHATE 50 MG TABLET PO SCH (10:00)
[2017-02-17] MEDS: NICOTINE 21 MG/24 HR PATCH.TD24 TD SCH (10:31)
[2017-02-17] MEDS: ENALAPRIL MALEATE 10 MG TABLET PO SCH (10:32)
[2017-02-17 14:05] VITALS: BP 152/80
== END 2017-02-17 15:29 | disposition home health service (06) | DRG 470 ==
LOC: INOR 05:34 → 4S 10:34
PROVIDERS: ADMIT Orthopaedic Surgery; ATTEND Orthopaedic Surgery
PROC: 0SRD0J9 Replacement of Left Knee Joint with Synthetic Substitute, Cemented, Open Approach (ICD-10-PCS; principal; 2017-02-15 07:30)
DX: M17.12 Unilateral primary osteoarthritis, left knee (principal); E11.22 Type 2 diabetes mellitus with diabetic chronic kidney disease; N18.3 Chronic kidney disease, stage 3 (moderate); F17.210 Nicotine dependence, cigarettes, uncomplicated; I12.9 Hypertensive chronic kidney disease with stage 1 through stage 4 chronic kidney disease, or unspecified chronic kidney disease; Z79.899 Other long term (current) drug therapy; Z91.14 Patient's other noncompliance with medication regimen; Z85.118 Personal history of other malignant neoplasm of bronchus and lung
CPT/HCPCS: 01402; 36415; 80048; 81001; 82962; 83036; 85027; 87070; 87075; 87205; 88304; 88311; 94799; C9290; G8978-GP; G8979-GP; G8987-GO; G8988-GO; J0131; J0690; J1100; J1741; J1815; J2250; J2270; J2405; J2704; J3010; J3370; J3490; J7050; J7060

== ENCOUNTER 2017-02-20 22:22 | Emergency (ER) | payer MEDICARE, MEDICAID ==
[2017-02-21] MEDS ORDERED: OXYCODONE-ACETAMINOPHEN 5-325 MG TABLET PO ONE (00:49)
--- NOTE | 2017-02-21 00:49 | ER Document Report ---
ED General - General Mode of Arrival: Wheelchair Information source: Patient TRAVEL OUTSIDE OF THE [place] IN LAST 30 DAYS: No <REGGIE GUO - Last Filed: 02/21/17 06:35> <CRAIG SCHULTE - Last Filed: 02/21/17 06:41> - General Chief Complaint: Knee Pain Stated Complaint: BLEEDING FROM RECTUM Time Seen by Provider: 02/21/17 00:26 Notes: Patient is a 76 year old female with a history of HTN and Type 2 Diabetes presents to the emergency department complaining of left knee pain onset after having a total knee replacement on 02/15/2017. Patient states she is in a lot of pain and that it worsened today. Patient is a poor historian and states that she did not walk today but later states she walked around the house and did her exercises. Patient denies fever or pain in left foot or hip. No history of trauma to her left knee. Patient is angry about wait at beside. Patient states that she is prescribed Oxycodone, although it did not help her left knee pain. (REGGIE GUO) - Related Data Allergies/Adverse Reactions: No Known Allergies Allergy (Verified 01/21/17 13:02) Past Medical History - General Information source: Patient - Social History Smoking Status: Unknown if Ever Smoked Family History: None Patient has suicidal ideation: No Patient has homicidal ideation: No - Past Medical History Cardiac Medical History: Reports: Hx Hypertension Endocrine Medical History: Reports: Hx Diabetes Mellitus Type 2 Malignancy Medical History: Reports: Hx Lung Cancer - pt states had half of lung removed Musculoskeltal Medical History: Reports Hx Arthritis - knees Traumatic Medical History: Denies: Hx Fractures Past Surgical History: Reports: Hx Tubal Ligation - Immunizations Hx Diphtheria, Pertussis, Tetanus Vaccination: Yes <REGGIE GUO - Last Filed: 02/21/17 06:35> - Social History Smoking Status: Current Every Day Smoker Smoking Education Provided: Yes - 4 mins <CRAIG SCHULTE - Last Filed: 02/21/17 06:41> Review of Systems - Review of Systems Constitutional: No symptoms reported EENT: No symptoms reported Cardiovascular: No symptoms reported Respiratory: No symptoms reported Gastrointestinal: No symptoms reported Genitourinary: No symptoms reported Female Genitourinary: No symptoms reported Musculoskeletal: See HPI, Other - Left Knee pain <REGGIE GUO - Last Filed: 02/21/17 06:35> Physical Exam <REGGIE GUO - Last Filed: 02/21/17 06:35> <CRAIG SCHULTE - Last Filed: 02/21/17 06:41> - Vital signs Vitals: Temp Pulse Resp BP Pulse Ox 98.4 F 112 H 20 147/84 H 97 02/20/17 23:03 02/20/17 23:03 02/20/17 23:03 02/20/17 23:03 02/20/17 23:03 - Notes Notes: GENERAL: Alert, interacts well. No acute distress. HEAD: Normocephalic, atraumatic. EYES: Pupils equal, round, and reactive to light. Extraocular movements intact. ENT: Oral mucosa moist, tongue midline. NECK: Full range of motion. Supple. Trachea midline. LUNGS: Clear to auscultation bilaterally, no wheezes, rales, or rhonchi. No respiratory distress. HEART: Regular rate and rhythm. No murmurs, gallops, or rubs. ABDOMEN: Soft, non-tender. Non-distended. Bowel sounds present in all 4 quadrants. EXTREMITIES: Moves all 4 extremities spontaneously. Left knee is moderately swollen compared to right. Mild patellar erythema. Bright green discharge from wound. Dry blood distal to wound. Tender to palpation above the patella. NEUROLOGICAL: Alert and oriented x3. Normal speech. PSYCH: Patient appears angry due to wait. (SARIREGGIE) Course - Laboratory Result Diagrams: 02/21/17 00:59 02/21/17 01:41 <REGGIE GUO - Last Filed: 02/21/17 06:35> - Laboratory Result Diagrams: 02/21/17 00:59 02/21/17 01:41 <CRAIG SCHULTE - Last Filed: 02/21/17 06:41> - Re-evaluation Re-evalutation: 02/21/17 03:57 CBC unremarkable, no leukocytosis, no shift, CMP grossly unremarkable only slightly low sodium at 133, knee x-ray shows left knee total arthroplasty and extensive soft tissue edema but no significant interval change. Cultures from the patellar bursa did not grow out any bacteria from the surgery that was recently performed. Knee has minimal redness and minimal swelling. No indication of infection at this time. Pain is completely relieved with 2 oxycodone. Patient initially did not mention to her and her rectal bleeding to me however now patient when specifically questioned does admit that she told the nurse she was having some rectal bleeding, states that it is small red streaks on the toilet paper after hard bowel movement. Discussed with patient that this is likely coming from constipation induced by narcotics, advised her to take stool softeners, patient states she does not have any money to afford stool softeners. Counseled patient eat high-fiber foods such as oatmeal drink plenty of water instead and this will function the same way and stool softeners. ( CRAIG SCHULTE) - Vital Signs Vital signs: Temp Pulse Resp BP Pulse Ox 98.6 F 94 18 125/97 H 94 02/21/17 05:17 02/21/17 05:17 02/21/17 05:17 02/21/17 05:17 02/21/17 05:17 - Laboratory Laboratory results interpreted by me: 02/21/17 02/21/17 00:59 01:41 RBC 3.04 L Hgb 10.2 L Hct 29.0 L MCH 33.7 H Sodium 133.0 L Est GFR (Non-Af Amer) 52 L Glucose 160 H Total Protein 5.9 L Albumin 3.2 L Discharge <REGGIE GUO - Last Filed: 02/21/17 06:35> <CRAIG SCHULTE - Last Filed: 02/21/17 06:41> - Discharge Clinical Impression: Bright red rectal bleeding, Tobacco abuse, Tobacco abuse counseling Left knee pain Qualifiers: Chronicity: acute Qualified Code(s): M25.562 - Pain in left knee Hypertension Qualifiers: Hypertension type: essential hypertension Qualified Code(s): I10 - Essential ( primary) hypertension Condition: Stable Disposition: HOME, SELF-CARE Additional Instructions: Please dissolve 1 scoop of MiraLAX in a glass of water once a day to treat constipation. You may increase to twice a day if needed to create soft bowel movements and you may decrease to every other day if you develop diarrhea. Please call Dr. Clark's office first thing Wednesday morning to let him know that you have had increased pain and swelling in her knee. Today your white blood cell count was normal and I did not see any signs of infection but it is still important that you follow-up with him closely. Return for fevers, increasing pain, redness or increasing swelling. Forms: Smoking Cessation Education, Elevated Blood Pressure Referrals: PRICILA CARMEN MD [Primary Care Provider] - Follow up as needed Scribe Attestation: 02/21/17 06:41 I personally performed the services described in the documentation, reviewed and edited the documentation which was dictated to the scribe in my presence, and it accurately records my words and actions. (CRAIG SCHULTE) Scribe Documentation - Scribe Written by Azar:: Azar Cao, 02/21/2017 01:59 acting as scribe for :: Radhika <REGGIE GUO - Last Filed: 02/21/17 06:35>
[2017-02-21 01:11] LABS: ABSOLUTE BASOPHILS # (AUTO) 0.2 10^3/uL (0.0-0.2); ABSOLUTE EOSINOPHILS # (AUTO) 0.2 10^3/uL (0.0-0.6); ABSOLUTE MONOCYTES (AUTO) 1.1 10^3/uL (0.1-1.4); ABSOLUTE NEUT (AUTO) 6.9 10^3/uL (1.7-8.2); EOSINOPHILS % (AUTO) 2.3 % (0-6); HEMOGLOBIN 10.2 g/dL (12.0-15.5); HGB HCT DIFFERENCE 1.6; MEAN CORPUSCULAR HEMOGLOBIN 33.7 pg (27.0-33.4); MEAN CORPUSCULAR HGB CONC 35.3 g/dL (32.0-36.0); MEAN CORPUSCULAR VOLUME 95 fl (80-97); MONOCYTES % (AUTO) 10.4 % (3-13); RED BLOOD COUNT 3.04 10^6/uL (3.72-5.28); RED CELL DISTRIBUTION WIDTH 13.3 % (11.5-14.0); SEGMENTED NEUTROPHILS % (AUTO) 66.3 % (42-78); WHITE BLOOD COUNT 10.4 10^3/uL (4.0-10.5)
[2017-02-21 02:16] LABS: ALANINE AMINOTRANSFERASE 36 U/L (9-52); ALBUMIN 3.2 g/dL (3.5-5.0); ALKALINE PHOSPHATASE 86 U/L (38-126); ANION GAP 10 (5-19); ASPARTATE AMINO TRANSFERASE 16 U/L (14-36); BILIRUBIN,DIRECT 0.4 mg/dL (0.0-0.4); BILIRUBIN,TOTAL 0.6 mg/dL (0.2-1.3); BLOOD UREA NITROGEN 19 mg/dL (7-20); CALCIUM 8.5 mg/dL (8.4-10.2); CARBON DIOXIDE 25 mmol/L (22-30); CHLORIDE 98 mmol/L (98-107); CREATININE RESULT 1.03 mg/dL (0.52-1.25); GLUCOSE 160 mg/dL (75-110); POTASSIUM 4.3 mmol/L (3.6-5.0); TOTAL PROTEIN 5.9 g/dL (6.3-8.2)
--- NOTE | 2017-02-21 02:22 | RADIOLOGY REPORT (SQ) ---
EXAM DESCRIPTION: KNEE LEFT 3 VIEWS COMPLETED DATE/TIME: 02/21/2017 1:44 am REASON FOR STUDY: swelling, recent replacement COMPARISON: 02/15/2017. NUMBER OF VIEWS: Three views. TECHNIQUE: AP, lateral, and sunrise patella radiographic images acquired of the left knee. LIMITATIONS: None. FINDINGS: MINERALIZATION: Osteopenia. BONES: No acute fracture or dislocation. No worrisome bone lesions. Total knee arthroplasty, no idalmis dence of metal fracture or loosening, moderate knee effusion, and moderate prepatellar swelling. JOINT: As above per SOFT TISSUES: Extensive soft tissue swelling and edema of the anterior knee and distal left upper leg . Developmental calcification at the lateral aspect of the distal femur. OTHER: Surgical skin clips anteriorly. Atherosclerosis. IMPRESSION: Left total knee arthroplasty. Extensive soft tissue edema. No significant interval blanca lima. TECHNICAL DOCUMENTATION: JOB ID: [id number] [employer]- All Rights Reserved
[2017-02-21 05:21] VITALS: BP 125/97
== END 2017-02-21 05:17 | disposition home or self-care (01) ==
LOC: ER 22:22
DX: M25.562 Pain in left knee (principal); K62.5 Hemorrhage of anus and rectum; E11.9 Type 2 diabetes mellitus without complications; I10 Essential (primary) hypertension; Z96.652 Presence of left artificial knee joint
CPT/HCPCS: 99406; 99284; 36415; 87040; 85025; 80053; 73562; A9270